=== PATIENT | female | born 1960 | race Caucasian/White ===

== ENCOUNTER → 2017-01-15 | Outpatient (CLI) | payer BC ==
[~2017-01-15] MED LIST: LEVO75TA5 PO
[2017-01-19 02:18] LABS: ANTI-STRIATED MUSCLE NEGATIVE (NEGATIVE); RECEPTOR BINDING AB <0.30 nmol/L
== END | disposition home or self-care (01) ==
LOC: C.LAB 12:08
PROVIDERS: ATTEND Ophthalmology
DX: H53.2 Diplopia (principal)

== ENCOUNTER → 2017-02-07 | Outpatient (CLI) | payer BC ==
--- NOTE | 2017-02-07 10:12 | DIAGNOSTIC IMAGING REPORT ---
MRI OF THE BRAIN WITHOUT AND WITH IV CONTRAST CLINICAL HISTORY: FOURTH NERVE PALSY, LT EYE HISTORY OF BRAIN TRAUMA WITH SUBARACHNOID HEMORRHAGE. COMPARISON STUDY: Noncontrast head CT dated 7 x 16 TECHNIQUE: MRI of the brain was performed from the vertex to the skull base utilizing various T1 and T2 weighted sequences. Following the IV administration of 6 mL of Gadavist contrast, additional enhanced images were obtained. FINDINGS: Sagittal T1, axial diffusion, proton density and T2 weighted axial, coronal FLAIR, and pre and post axial T1-weighted images were acquired. These were supplemented with post gadolinium coronal T1 weighted images. No intra or extra-axial mass lesions are visualized. Axial diffusion-weighted images reveal no evidence of acute or subacute infarction. There is no evidence of ventricular dilatation. Proton density T2-weighted and FLAIR images reveal a few subcentimeter foci of increased T2 and FLAIR signal within the right frontal white matter. There are no abnormal flow voids. No hemorrhagic products are visualized on the axial gradient echo sequence. There is no evidence of pathologic enhancement. IMPRESSION: 1. No evidence of intracranial mass 2. No evidence of acute or subacute infarction 3. There are few nonspecific subcentimeter foci of increased T2 and FLAIR signal within the right frontal white matter Electronically signed by: Zay Isaac M.D. 02/07/2017 10:11 AM Dictated Date/Time: 02/07/2017 10:07 AM
== END | disposition home or self-care (01) ==
LOC: C.MRI 08:50
PROVIDERS: ATTEND Ophthalmology
DX: H49.12 Fourth [trochlear] nerve palsy, left eye (principal); H53.2 Diplopia

== ENCOUNTER → 2017-02-20 | Outpatient (CLI) | payer BC | END | disposition home or self-care (01) | LOC: C.LAB 08:15 | PROVIDERS: ATTEND Family Medicine | DX: E03.9 Hypothyroidism, unspecified (principal) ==

== ENCOUNTER → 2017-09-11 | Outpatient (CLI) | payer BC | END | disposition home or self-care (01) | LOC: C.LAB 15:51 | PROVIDERS: ATTEND Family Medicine | DX: E03.9 Hypothyroidism, unspecified (principal) ==